=== PATIENT | female | born 1965 | race Caucasian/White ===

== ENCOUNTER → 2016-10-06 | Outpatient (REF) | payer OTHER ==
[2016-10-06 19:27] LABS: ALBUMIN 3.3 GM/DL (3.2-5.2); ALBUMIN/GLOBULIN RATIO 1.03 (1.00-1.93); ALKALINE PHOSPHATASE 64 U/L (45-117); ALT/SGPT 25 U/L (12-78); ANION GAP 6 MEQ/L (8-16); AST/SGOT 21 U/L (15-37); BILIRUBIN,TOTAL 0.6 MG/DL (0.2-1.0); BLOOD UREA NITROGEN 14 MG/DL (7-18); CARBON DIOXIDE LEVEL 28 MEQ/L (21-32); CHLORIDE LEVEL 109 MEQ/L (98-107); CHOLESTEROL LEVEL 160 MG/DL (<200); CREATININE FOR GFR 0.79 MG/DL (0.55-1.02); FERRITIN 38 NG/ML (8-252); GLOMERULAR FILTRATION RATE > 60.0 (>58); GLUCOSE, FASTING 82 MG/DL (70-105); POTASSIUM SERUM 3.9 MEQ/L (3.5-5.1); SODIUM LEVEL 143 MEQ/L (136-145); TOTAL PROTEIN 6.5 GM/DL (6.4-8.2); TRIGLYCERIDES LEVEL 54 MG/DL (<150)
[2016-10-06 19:28] LABS: VITAMIN B12 LEVEL 202 PG/ML
[2016-10-06 19:29] LABS: FOLATE 3.9 NG/ML
[2016-10-06 20:37] LABS: BASO % 0.2 % (0.0-1.0); EOS # 0.1 K/mm3 (0.0-0.50); EOS % 1.8 % (0.0-3.0); LARGE UNSTAINED CELL # 0.1 K/mm3 (0.0-0.4); LARGE UNSTAINED CELL % 1.8 % (0.0-4.0); LYMPH # 0.8 K/mm3 (1.5-4.5); LYMPH % 19.2 % (24.0-44.0); MEAN CORPUSCULAR HEMOGLOBIN 28.1 pg (27.0-33.0); MEAN CORPUSCULAR HGB CONC 32.4 g/dl (32.0-36.5); MEAN CORPUSCULAR VOLUME 86.7 fl (80.0-96.0); MONO # 0.4 K/mm3 (0.0-0.8); MONO % 9.9 % (0.0-5.0); NEUTROPHILS # 2.6 K/mm3 (1.8-7.7); NEUTROPHILS % 67.1 % (36.0-66.0); PLATELET COUNT, AUTOMATED 171 k/mm3 (150-450); RED CELL DISTRIBUTION WIDTH 13.6 % (11.5-14.5); WHITE BLOOD COUNT 3.9 K/mm3 (4.0-10.0)
== END ==
LOC: M SFHCCAPE 06:56
PROVIDERS: ATTEND Physician Assistant
DX: Z98.84 Bariatric surgery status (principal); E55.9 Vitamin D deficiency, unspecified

== ENCOUNTER → 2017-01-05 | Outpatient (REF) | payer OTHER | LOC: M SFHCCAPE 14:47 | PROVIDERS: ATTEND Physician Assistant | DX: M54.42 Lumbago with sciatica, left side (principal) ==

== ENCOUNTER → 2017-04-13 | Outpatient (CLI) | payer BC ==
--- NOTE | 2017-04-13 15:27 | REPMRS ---
Patient History The patient states she has not had a clinical breast exam in over a year. Patient is postmenopausal. Family history of breast cancer in mother at age 50 or over. Took hormonal contraceptives for 4 years. Digital Woman Screen Mammo: April 13, 2017 - Exam #: [id number] Bilateral CC and MLO view(s) were taken. Technologist: Agnieszka Ojeda, Technologist Prior study comparison: February 20, 2016, digital woman screen mammo performed at [facility]. January 04, 2014, bilateral bilat screen digital mammo, performed at [facility] ([facility] FINDINGS: There are scattered fibroglandular densities. There has been no change in the appearance of the mammogram from the prior studies. There is a mild amount of residual fibroglandular tissue which is fairly symmetric. There is no interval development of dominant mass, architectural distortion, or clustered microcalcification suggestive of malignancy. Large coarse benign appearing calcifications are present. Large coarse benign appearing calcifications are present. No significant changes when compared with prior studies. ASSESSMENT: BI-RADS/ACR category 2 mammogram. Benign finding(s). Recommendation Routine screening mammogram in 1 year (for women over age 40). This mammogram was interpreted with the aid of an FDA-approved computer-aided dectection system. A. Negative x-ray reports should not delay biopsy if a dominant or clinically suspicious mass is present. B. Four to eight percent of cancers are not identified by mammography. C. Adenosis and dense breast may obscure an underlying neoplasm. Electronically Signed By: Bobby Goodson MD 04/13/17 [id number]
== END ==
LOC: M WHC 13:22
PROVIDERS: ATTEND Physician Assistant
DX: Z12.31 Encounter for screening mammogram for malignant neoplasm of breast (principal)

== ENCOUNTER → 2018-08-23 | Outpatient (REF) | payer OTHER ==
[2018-08-27 14:13] LABS: HPV HYBRID CAPTURE II Negative (Negative)
== END ==
LOC: M SFHCWAGY 15:19
DX: Z12.4 Encounter for screening for malignant neoplasm of cervix (principal)
CPT/HCPCS: G0123

== ENCOUNTER → 2018-08-23 | Outpatient (CLI) | payer BC | LOC: M WHC 13:14 | DX: Z12.31 Encounter for screening mammogram for malignant neoplasm of breast (principal); Z80.3 Family history of malignant neoplasm of breast; Z92.0 Personal history of contraception | CPT/HCPCS: 77067 ==

== ENCOUNTER → 2019-05-19 | Outpatient (REF) | payer OTHER ==
[2019-05-19 19:50] LABS: ALBUMIN 3.6 GM/DL (3.2-5.2); BILIRUBIN,DIRECT 0.1 MG/DL (0.0-0.2); BILIRUBIN,TOTAL 0.4 MG/DL (0.2-1.0); TOTAL PROTEIN 6.9 GM/DL (6.4-8.2)
== END ==
LOC: M LABDRWCV 18:25
PROVIDERS: ATTEND Podiatrist
DX: Z00.00 Encounter for general adult medical examination without abnormal findings (principal)

== ENCOUNTER → 2019-05-19 | Outpatient (REF) | payer OTHER ==
[2019-05-19 17:02] LABS: BASO % 0.3 % (0.0-1.0); EOS % 0.6 % (0.0-3.0); HEMATOCRIT 38.7 % (36.0-47.0); HEMOGLOBIN 12.5 g/dl (12.0-15.5); LYMPH # 1.1 10^3/uL (1.5-5.0); LYMPH % 16.6 % (24.0-44.0); MEAN CORPUSCULAR HEMOGLOBIN 28.2 pg (27.0-33.0); MEAN CORPUSCULAR HGB CONC 32.3 g/dl (32.0-36.5); MEAN CORPUSCULAR VOLUME 87.2 fl (80.0-96.0); MONO # 0.5 10^3/uL (0.0-0.8); MONO % 7.6 % (0.0-5.0); NEUTROPHILS # 4.8 10^3/uL (1.5-8.5); NEUTROPHILS % 74.7 % (36.0-66.0); PLATELET COUNT, AUTOMATED 214 10^3/uL (150-450); RED BLOOD COUNT 4.44 10^6/uL (4.00-5.40); WHITE BLOOD COUNT 6.5 10^3/uL (4.0-10.0)
[2019-05-19 17:37] LABS: ALBUMIN 4.2 GM/DL (3.2-5.2); ALT/SGPT 16 U/L (12-78); BILIRUBIN,TOTAL 0.5 MG/DL (0.2-1.0); BLOOD UREA NITROGEN 13 MG/DL (7-18); CALCIUM LEVEL 9.5 MG/DL (8.5-10.1); CARBON DIOXIDE LEVEL 29 MEQ/L (21-32); CHLORIDE LEVEL 108 MEQ/L (98-107); CHOLESTEROL LEVEL 166 MG/DL (<200); CHOLESTEROL RISK RATIO 2.515 (<5); CREATININE FOR GFR 0.79 MG/DL (0.55-1.30); GLOMERULAR FILTRATION RATE > 60.0 (>51); GLUCOSE, FASTING 116 MG/DL (70-100); HDL CHOLESTEROL 66 MG/DL (>40); IRON (FE) 52 UG/DL (50-170); LDL CHOLESTEROL 87 MG/DL (<100); NON-HDL-C 100 MG/DL; POTASSIUM SERUM 4.2 MEQ/L (3.5-5.1); SODIUM LEVEL 143 MEQ/L (136-145); TOTAL 25(OH) VITAMIN D 25.8 NG/ML (30.0-100.0); TOTAL PROTEIN 6.8 GM/DL (6.4-8.2); TRIGLYCERIDES LEVEL 66 MG/DL (<150); VITAMIN B12 LEVEL 261 PG/ML (247-911)
== END ==
LOC: M SFHCCAPE 07:17
PROVIDERS: ATTEND Physician Assistant
DX: E55.9 Vitamin D deficiency, unspecified (principal); E53.8 Deficiency of other specified B group vitamins; D50.9 Iron deficiency anemia, unspecified; Z98.84 Bariatric surgery status; E66.9 Obesity, unspecified

== ENCOUNTER → 2019-10-17 | Outpatient (CLI) | payer BC, OTHER ==
--- NOTE | 2019-10-17 15:13 | REPMRS ---
Patient History The patient states she had a clinical breast exam in 2019. Family history of breast cancer at age 50 or over in mother. Took hormonal contraceptives for 4 years. Digital Woman Screen Mammo: October 17, 2019 - Exam #: [id number] Bilateral CC and MLO view(s) were taken. Technologist: Carolynn Garcia, Technologist Prior study comparison: August 23, 2018, bilateral digital woman screen mammo performed at [facility]. April 13, 2017, digital woman screen mammo performed at [facility]. February 20, 2016, digital woman screen mammo performed at [facility]. FINDINGS: There are scattered fibroglandular densities. There has been no change in the appearance of the mammogram from the prior studies. There is a mild amount of scattered fibroglandular density which is fairly symmetric. There is no interval development of dominant mass, architectural distortion, or grouped microcalcification suggestive of malignancy. 3-D tomosynthesis shows no additional findings. Assessment: BI-RADS/ACR category 1 mammogram. Negative Mammogram. Recommendation Routine screening mammogram of both breasts in 1 year (for women over age 40). This patient's Lifetime Breast Cancer Risk is estimated at 18.0 %. This mammogram was interpreted with the aid of an FDA-approved computer-aided dectection system. Electronically Signed By: Taye Oglesby MD 10/17/19 [id number]
== END ==
LOC: M WHC 13:58
PROVIDERS: ATTEND Nurse Practitioner Family
DX: Z12.31 Encounter for screening mammogram for malignant neoplasm of breast (principal); Z80.3 Family history of malignant neoplasm of breast

== ENCOUNTER → 2019-10-25 | Outpatient (CLI) | payer BC, OTHER ==
--- NOTE | 2019-10-28 09:55 | REP ---
Clinical: Venous insufficiency . Technique: Avitia scale and color Doppler evaluation of the bilateral lower extremities using linear high frequency transducer with reflux evaluation . Findings: Ultrasound examination of the right and left lower extremity deep venous structures from the common femoral vein to the popliteal vein demonstrates normal compressibility flow and wave patterns in response to respiration and augmentation. There is no evidence for deep venous thrombosis. Extensive bilateral elements of reflux disease through the deep and superficial systems noted along with bilateral collateral vessels which also demonstrate reflux. Please refer to worksheet for detail findings. Impression: No evidence for deep venous thrombosis. Extensive bilateral reflux disease with bilateral collateral vessels. Electronically Signed by Severo Hernandez MD 10/28/2019 09:46 A
== END ==
LOC: M RAD 11:55
PROVIDERS: ATTEND Physician Assistant
DX: I87.2 Venous insufficiency (chronic) (peripheral) (principal)

== ENCOUNTER → 2019-11-15 | Outpatient (POV) | payer BC, OTHER ==
[~2019-11-15] VITALS: Ht 170.2 cm; Wt 91.8 kg
[2019-11-15 14:40] VITALS: BP 137/82
--- NOTE | 2019-11-18 09:31 | IRCOV ---
[facility] IR Consult Office Visit IR Consult Office Visit DATE: Nov 15, 2019 REASON FOR CONSULTATION/CHIEF COMPLAINT: Nonhealing right lower extremity ulcer. HISTORY OF PRESENT ILLNESS: 54-year-old female with chronic right medial malleolar venous stasis ulcer presents for varicose vein consultation. She reports right leg vein surgery performed 10 years ago when the veins were stripped. This was performed for bleeding varicose veins. This helped for severa l years but then symptoms returned with pain, limb swelling and nonhealing ulcer. She is on her feet all day and works greater than 8 hours a day. She does wear compression stockings. No prior deep vein thrombosis. No intermittent claudication, rest pain or gangrene. ALLERGIES: Please see below. HOME MEDICATIONS: Please see below. PAST MEDICAL HISTORY: Anxiety Disequilibrium PAST SURGICAL HISTORY: Tubal ligation Umbilical hernia D&C Gastric bypass Endometrial ablation Bariatric surgery Right shoulder tear FAMILY HISTORY: Varicose veins on father's side of the family SOCIAL HISTORY: Nonsmoker. No alcohol or drugs. REVIEW OF SYSTEMS: Otherwise negative PHYSICAL EXAMINATION: VITAL SIGNS: Please see below. GENERAL APPEARANCE: Appears well. Comfortable at rest. HEENT: No scleral icterus. RESPIRATORY: Normal breathing at rest. CARDIOVASCULAR: Normal rate. ABDOMEN: Soft nontender EXTREMITIES: Right lower; mild edema. Varicose eczema. Warm to touch. No hemosiderin deposition or lipodermatosclerosis. Superficial ulceration over the medial malleolus. Left lower extremity: Mild edema. Varicose eczema. Warm to touch. No hemosiderin deposition. No lipodermatosclerosis. No ulcers. NEUROLOGICAL: Alert and oriented. PSYCHIATRIC: Appropriate to circumstance. LABORATORY DATA: None recent. Imaging: I personally reviewed the ultrasound of the bilateral lower extremities from Oct 2019. There is bilateral dilated greater saphenous system with greater than 0.5 seconds reflux. There is also left lesser saphenous vein reflux greater than 0.5 seconds associated with varicosities. ASSESSMENT/PLAN: 54-year-old female with bilateral chronic venous hypertension associated with abnormal reflux in the superficial venous system and nonhealing wound on the right lower extremity. She is a good candidate for EVLT therapy. We have scheduled the patient for right lower extremity, right anterior accessory ablation followed by the left lower extremity greater and lesser saphenous system, at a later date. I spent 30 minutes in consultation with the patient. Thank you for this referral. CC Marily Solorzano Allergies Coded Allergies: MS - Penicillins (Unverified Allergy, Severe, GLANDS SWOLLEN, 12/13/12) MS - Penicillins Cross Reactors (Unverified Allergy, Severe, GLANDS SWOLLEN, 12/13/12) VS, I&O, 24H, Fishbone Vital Signs/I&O Vital Signs Date Time Temp Pulse Resp B/P (MAP) Pulse Ox O2 Delivery O2 Flow Rate FiO2 11/15/19 14:40 97.6 70 18 137/82 (100) 100 Room Air LEONOR LEE MD Nov 18, 2019 09:32
== END ==
LOC: M IRPOV 14:29
PROVIDERS: ATTEND Radiology Diagnostic Radiology
DX: I87.311 Chronic venous hypertension (idiopathic) with ulcer of right lower extremity (principal); I87.393 Chronic venous hypertension (idiopathic) with other complications of bilateral lower extremity; I83.892 Varicose veins of left lower extremity with other complications; L97.319 Non-pressure chronic ulcer of right ankle with unspecified severity; Z98.51 Tubal ligation status; Z98.84 Bariatric surgery status

== ENCOUNTER → 2020-01-19 | Outpatient (CLI) | payer BC, OTHER ==
[~2020-01-19] MED LIST: LIDOCAINE 1% MDV 20ML VIAL As Ordered ONE; LIDOCAINE 2% MDV 20ML VIAL As Ordered ONE
[2020-01-19 15:47] VITALS: BP 126/74
--- NOTE | 2020-01-30 11:49 | REP ---
Ultrasound right lower extremity venous Indication: EVLT treatment Findings: Avitia-scale and color Doppler images obtained of the right lower extremity demonstrate patent and compressible right common femoral vein. Dilated right greater saphenous vein and right anterior accessory greater saphenous vein with reflux greater than 0.5 seconds. The right anterior accessory GSV remains dilated all the way down the thigh and becomes superficial and tortuous around the knee. The site in the distal thigh was prepped and draped in the usual sterile fashion. Moderate sedation was administered for 30 minutes, with the aid of an independent trained observer who monitored the patient's physiologic status. Lidocaine was administered at the anticipated puncture site. Under ultrasound guidance, a micropuncture needle was advanced into the distal right anterior accessory GAV. After several attempts, the anterior accessory vein became spasmodic and was inaccessible. Impression: Right lower extremity ultrasound with color Doppler images demonstrate dilated right greater saphenous vein and right anterior accessory GSV with greater than 0.5 seconds reflux. Right anterior accessory GSV continues down the thigh, dilated and tortuous around the knee. 2. Failed access of the right anterior accessory vein for laser treatment. The patient will be brought back for repeat attempt. Thank you this referral Electronically Signed by Farnaz Wilkins MD 01/30/2020 11:47 A
== END ==
LOC: M IRPRO 11:40
PROVIDERS: ATTEND Radiology Diagnostic Radiology
DX: I83.891 Varicose veins of right lower extremity with other complications (principal)
CPT/HCPCS: 93971; 99152; 99153; C1894

== ENCOUNTER → 2020-02-09 | Outpatient (CLI) | payer BC, OTHER ==
[~2020-02-09] MED LIST changes: +MIDAZOLAM INJ 2MG/2ML VIAL (J2250 PER 1MG) As Ordered ONE; +PROMETHAZINE INJ 25 MG/ML VIAL (J2550) As Ordered ONE; +diphenhydrAMINE 50MG/ML VIAL (J1200) As Ordered ONE; +fentaNYL 100 MCG/2 ML INJECTION (J3010) As Ordered ONE
--- NOTE | 2020-02-09 13:53 | IRHP ---
[facility] IR Pre-Procedure H & P General Date of Service: February 09, 2020 Procedure: Same Day Surgery Interval History and Physical I have seen the patient and reviewed last H & P performed within 30 days. There is no significant interval change. History of Present Illness Chief Complaint The patient is a 54-year-old female admitted with a reason for visit of Varicose Veins. PRE-PROCEDURE DIAGNOSIS:varicose veins HEART: normal rate. LUNGS: normal breathing at rest. ASA Classification ASA Classification: II-Mild systemic disease Mallampati Score: II NPO: Yes Problems with prior sedation: No Obstructive Sleep Apnea: No Plan moderate sedation Allergies Coded Allergies: MS - Penicillins (Unverified Allergy, Severe, GLANDS SWOLLEN, 12/13/12) MS - Penicillins Cross Reactors (Unverified Allergy, Severe, GLANDS SWOLLEN, 12/13/12) VS, I&O, 24H, Fishbone Vital Signs/I&O Vital Signs Date Time Temp Pulse Resp B/P (MAP) Pulse Ox O2 Delivery O2 Flow Rate FiO2 02/09/20 13:40 57 16 99 Nasal Cannula 2 02/09/20 11:22 98.1 LEONOR LEE MD February 09, 2020 13:52
--- NOTE | 2020-02-09 13:54 | POST-OPPD ---
Postoperative Procedure Note Date Of Procedure: February 09, 2020 Time Of Procedure: 13:53 PREOPERATIVE DIAGNOSIS: left leg venous insufficiency. ant gsv reflux POSTOPERATIVE DIAGNOSIS: same FINDINGS: left ant GSV reflux PROCEDURE: EVLT SURGEON:nathalia ANESTHESIA: mod sed ESTIMATED BLOOD LOSS: < 5 ml COMPLICATIONS: none POSTOPERATIVE CONDITION: stable LEONOR LEE MD February 09, 2020 13:54
[2020-02-09 15:45] VITALS: BP 129/72
--- NOTE | 2020-02-10 14:54 | REP ---
LOWER EXTREMITY VENOUS ULTRASOUND: HISTORY: Greater saphenous vein reflux. Sonographic guidance. FINDINGS: Ultrasound guidance is provided to Dr. Wilkins who performed endovascular laser ablation therapy. Electronically Signed by Gopal Oglesby MD 02/10/2020 03:10 P
--- NOTE | 2020-02-13 16:18 | POST-OPPD ---
Postoperative Procedure Note Date Of Procedure: Mar 11, 2020 Time Of Procedure: 15:00 The radiology dictation could not be amended in . Therefore, please use this full procedure report for details of op, coding and billing. Disregard report under imaging tab. IR Endovenous laser treatment for right leg varicose vein. IR Ultrasound of the right leg. IR Tumescent anesthesia under ultrasound guidance. IR Moderate sedation. Clinical information: Right leg varicose veins, venous insufficiency and reflux right anterior accessory GSV. Physician: Dr. Wilkins. Procedure: The patient was advised of the benefits, risks and alternatives of the procedure and informed consent was obtained. The time-out was performed with verification of the patient's name, MRN, site of procedure and type of procedure to be performed. The patient was positioned in the supine position on the table. The site was prepped and draped in the usual sterile fashion. Moderate sedation was performed by the physician including the presence of an independent trained observer who assisted in monitoring the patient's level of consciousness and physiologic status. Following the administration of fentanyl and Versed , the physician spent 60 minutes of continuous face to face time with the patient. Ultrasound of the right lower extremity demonstrates dilated anterior accessory GSV with >0.5 seconds reflux. The access site was identified with ultrasound and anesthetized with lidocaine. The anterior accessory GSV was accessed under ultrasound guidance mid thigh, using a micro introducer needle. An 018 cope wire was advanced into the vein. Incision at the access site was made using a scalpel. The needle was removed and a micro sheath was advanced over the wire under ultrasound guidance. The wire was exchanged for a longer wire, which was advanced under ultrasound guidance. The micro sheath was removed over the wire and an access catheter was advanced over the wire, under ultrasound guidance and positioned 2.5 centimeters from the saphenofemoral junction. The laser fiber was advanced through the catheter under ultrasound guidance and positioned with the tip located >2.5 cm from the saphenous femoral junction. Tumescent anesthesia was then injected under ultrasound guidance along the entire length of the vein to be treated. Repeat ultrasound of the saphenofemoral junction was used to confirm positioning of the tip of the laser back >2.5 cm from junction. The patient was positioned in Trendelenburg. The laser was then activated and under ultrasound guidance used to laser the anterior accessory greater saphenous vein back to the access point. Simultaneous manual compression was applied to the treated vein. Treatment: Wattage: 7 Time: 77 seconds Pullback rate 1 cm every 7 seconds Total Energy deposited 538 joules Treatment 50 joules per centimeter of vein. The fiber and catheter were removed, pressure held and hemostasis achieved. A sterile dressing was applied to the site. Compression dressing was then applied to the leg, from ankle to groin. The patient tolerated the procedure well and was returned to the PRU in stable condition. EBL: < 5 ml. Complications: None. Impression: 1. Ultrasound demonstrates incompetent right anterior GSV with > 0.5 seconds reflux. 2. Successful right anterior accessory greater saphenous vein ablation with laser. 3. Compression dressing applied from ankle to groin. Patient to return in 1 week for follow up ultrasound at which time the compression dressing will be switched to stockings. Thank you this referral. cc LEONOR Topete MD Feb 13, 2020 16:18
== END ==
LOC: M IRPRO 11:18
PROVIDERS: ATTEND Radiology Diagnostic Radiology
DX: I83.891 Varicose veins of right lower extremity with other complications (principal); I87.2 Venous insufficiency (chronic) (peripheral)
CPT/HCPCS: 36478; 76940; 99152; 99153; C1894; J1200; J1644; J2250; J3010

== ENCOUNTER → 2020-02-16 | Outpatient (CLI) | payer BC, OTHER ==
--- NOTE | 2020-02-17 03:54 | REP ---
Clinical: Status post EVLT with right-sided pain. Technique: Avitia scale and color Doppler evaluation right lower extremity using linear high frequency transducer. Findings: Ultrasound examination of the right lower extremity deep venous structures from the common femoral vein to the popliteal vein demonstrates normal compressibility flow and wave patterns in response to respiration and augmentation. There is no evidence for deep venous thrombosis. Impression: No evidence for deep venous thrombosis. Electronically Signed by Severo Hernandez MD 02/17/2020 03:46 A
== END ==
LOC: M RAD 10:03
PROVIDERS: ATTEND Radiology Diagnostic Radiology
DX: M79.661 Pain in right lower leg (principal); Z98.890 Other specified postprocedural states

== ENCOUNTER → 2020-03-08 | Outpatient (CLI) | payer BC, OTHER ==
--- NOTE | 2020-03-08 12:33 | IRHP ---
[facility] IR Pre-Procedure H & P General Date of Service: Mar 08, 2020 Procedure: Same Day Surgery Interval History and Physical I have seen the patient and reviewed last H & P performed within 30 days. There is no significant interval change. History of Present Illness Chief Complaint The patient is a 54-year-old female admitted with a reason for visit of Varicose Veins. PRE-PROCEDURE DIAGNOSIS: varicose veins HEART:normal rate LUNGS: normal breathing at rest. ASA Classification ASA Classification: II-Mild systemic disease Mallampati Score: II NPO: Yes Problems with prior sedation: No Obstructive Sleep Apnea: No Plan moderate sedation Allergies Coded Allergies: MS - Penicillins (Unverified Allergy, Severe, GLANDS SWOLLEN, 12/13/12) MS - Penicillins Cross Reactors (Unverified Allergy, Severe, GLANDS SWOLLEN, 12/13/12) Home Medications No Active Prescriptions or Reported Meds VS, I&O, 24H, Fishbone Vital Signs/I&O Vital Signs Date Time Temp Pulse Resp B/P (MAP) Pulse Ox O2 Delivery O2 Flow Rate FiO2 03/08/20 12:20 65 16 99 Nasal Cannula 2 03/08/20 11:30 98.2 LEONOR LEE MD Mar 08, 2020 12:33
--- NOTE | 2020-03-08 13:29 | POST-OPPD ---
Postoperative Procedure Note Date Of Procedure: Mar 08, 2020 Time Of Procedure: 13:28 PREOPERATIVE DIAGNOSIS: left leg varicose veins POSTOPERATIVE DIAGNOSIS: same FINDINGS: incompetent left anterior accessory GSV PROCEDURE: left anterior accessory GSV EVLT SURGEON: nathalia ANESTHESIA: mod sed ESTIMATED BLOOD LOSS: < 5 ml COMPLICATIONS: none POSTOPERATIVE CONDITION: stable LEONOR LEE MD Mar 08, 2020 13:29
[2020-03-08 15:13] VITALS: BP 135/74
--- NOTE | 2020-03-12 12:19 | REP ---
IR Endovenous laser treatment for left leg varicose vein. IR Ultrasound of the left leg. IR Tumescent anesthesia under ultrasound guidance. IR moderate sedation. Clinical information: Varicose veins. Incompetent left anterior accessory greater saphenous vein with greater than 0.5-second reflux. Physician: Dr. Wilkins. Procedure: The patient was advised of the benefits, risks and alternatives of the procedure and informed consent was obtained. The time-out was performed with verification of the patient's name, MRN, site of procedure and type of procedure to be performed. The patient was positioned in the supine position on the table. The site was prepped and draped in the usual sterile fashion. Moderate sedation was performed by the physician including the presence of an independent trained observer who assisted in monitoring the patient's level of consciousness and physiologic status. Following the administration of fentanyl and Versed , the physician spent 60 minutes of continuous face to face time with the patient. Ultrasound of the left leg demonstrates dilated anterior accessory GSV with greater than 0.5 seconds reflux. The access site was identified with ultrasound and anesthetized with lidocaine. The anterior accessory GSV was accessed under ultrasound guidance distal thigh, using a micro introducer needle. An 018 cope wire was advanced into the vein. Incision at the access site was made using a scalpel. The needle was removed and a micro sheath was advanced over the wire under ultrasound guidance. The wire was exchanged for a longer wire. The micro sheath was removed over the wire and an access catheter was advanced over the wire, under ultrasound guidance and positioned 2.5 centimeters from the saphenofemoral junction. The laser fiber was advanced through the catheter under ultrasound guidance and positioned with the tip located > 2.5 cm from the saphenous femoral junction. Tumescent anesthesia was then injected under ultrasound guidance along the entire length of the vein to be treated. Repeat ultrasound of the saphenofemoral junction was used to confirm positioning of the tip of the laser back > 2.5 cm from junction. The patient was positioned in Trendelenburg. The laser was then activated and under ultrasound guidance used to laser the anterior accessory greater saphenous vein back to the access point. Simultaneous manual compression was applied to the treated vein. Treatment: Wattage: 7 Time: 77 seconds Pullback rate 1 cm every 7 seconds Total Energy deposited 537 joules Treatment 53 joules per centimeter of vein. The fiber, catheter and sheath were removed, pressure held and hemostasis achieved. A sterile dressing was applied to the site. Compression dressing was then applied to the leg, from ankle to groin. The patient tolerated the procedure well and was returned to the PRU in stable condition. EBL: < 5 ml. Complications: None. Impression: 1. Ultrasound demonstrates dilated and incompetent left anterior accessory greater saphenous vein with greater than 0.5-second reflux. 2. Successful left anterior accessory greater saphenous vein ablation with laser. 3. Compression dressing applied from ankle to groin. Patient to return in 1 week for follow up ultrasound at which time the compression dressing will be switched to stockings. 4. Patient to return for left lesser saphenous vein ablation. Thank you this referral. Electronically Signed by Farnaz Wilkins MD 03/12/2020 12:18 P
== END ==
LOC: M IRPRO 11:13
PROVIDERS: ATTEND Radiology Diagnostic Radiology
DX: I83.892 Varicose veins of left lower extremity with other complications (principal); I87.2 Venous insufficiency (chronic) (peripheral); Z88.0 Allergy status to penicillin
CPT/HCPCS: 36478; 76940; 99152; 99153; J2250; J3010

== ENCOUNTER → 2020-03-15 | Outpatient (CLI) | payer BC, OTHER ==
--- NOTE | 2020-03-15 11:15 | REP ---
Clinical: Left lower extremity pain. Status post venous laser therapy . Technique: Avitia scale and color Doppler evaluation using linear high frequency transducer. Findings: Ultrasound examination of the left lower extremity deep venous structures from the common femoral vein to the popliteal vein demonstrates normal compressibility flow and wave patterns in response to respiration and augmentation. There is no evidence for deep venous thrombosis. Anterior accessory saphenous vein demonstrates thrombus secondary to EVLT. Greater saphenous vein is normal. Impression: No evidence for deep venous thrombosis. Electronically Signed by Severo Hernandez MD 03/15/2020 11:06 A
== END ==
LOC: M RAD 10:26
PROVIDERS: ATTEND Radiology Diagnostic Radiology
DX: Z98.890 Other specified postprocedural states (principal); I80.02 Phlebitis and thrombophlebitis of superficial vessels of left lower extremity

== ENCOUNTER → 2020-05-07 | Outpatient (CLI) | payer BC, OTHER ==
--- NOTE | 2020-06-07 11:08 | REP ---
BILATERAL BREAST MRI STUDY WITHOUT AND WITH INTRAVENOUS (IV) GADOLINIUM HISTORY: High risk breast cancer screening study. COMPARISON: Mammography 10/17/2019. No comparison MRI study. GADOLINIUM ENHANCEMENT DOSE: 18 mL of intravenous ProHance. MRI FINDINGS: There is a mild pattern of symmetric fibroglandular tissue. There is no evidence of axillary lymphadenopathy or significant breast cystic change. High resolution pre- and postcontrast T1 and T2-weighted scans show no suspicious morphologic abnormality in either breast. Dynamically acquired sequential postcontrast images show no suspicious focus of enhancement and/or washout in either breast to suggest malignancy. Subtraction images show no additional abnormality. There is a mild pattern of background parenchymal enhancement. IMPRESSION: BI-RADS Category 1 negative findings. Patients whose estimated breast cancer lifetime risk assessment is greater than 20% merit annual screening, breast MRI scanning in addition to annual screening mammography. MTDD
== END ==
LOC: M RAD 12:41
PROVIDERS: ATTEND Nurse Practitioner Family
DX: Z91.89 Other specified personal risk factors, not elsewhere classified (principal)

== ENCOUNTER → 2021-12-12 | Outpatient (REF) | payer OTHER ==
[2021-12-12 16:24] LABS: BASO % 0.7 % (0.0-1.0); EOS # 0.1 10^3/uL (0.0-0.5); EOS % 2.4 % (0.0-3.0); HEMATOCRIT 36.2 % (36.0-47.0); HEMOGLOBIN 11.7 g/dl (12.0-15.5); LYMPH # 1.7 10^3/uL (1.5-5.0); LYMPH % 36.3 % (24.0-44.0); MEAN CORPUSCULAR HEMOGLOBIN 26.7 pg (27.0-33.0); MEAN CORPUSCULAR HGB CONC 32.3 g/dl (32.0-36.5); MEAN CORPUSCULAR VOLUME 82.5 fl (80.0-96.0); MONO # 0.5 10^3/uL (0.0-0.8); MONO % 10.3 % (2.0-8.0); NEUTROPHILS # 2.3 10^3/uL (1.5-8.5); NEUTROPHILS % 49.9 % (36.0-66.0); PLATELET COUNT, AUTOMATED 204 10^3/uL (150-450); RED BLOOD COUNT 4.39 10^6/uL (4.00-5.40); WHITE BLOOD COUNT 4.6 10^3/uL (4.0-10.0)
[2021-12-12 16:32] LABS: ALBUMIN 3.5 GM/DL (3.2-5.2); ALT/SGPT 33 U/L (12-78); BILIRUBIN,TOTAL 0.4 MG/DL (0.2-1.0); BLOOD UREA NITROGEN 14 MG/DL (7-18); CALCIUM LEVEL 8.9 MG/DL (8.5-10.1); CARBON DIOXIDE LEVEL 31 MEQ/L (21-32); CHLORIDE LEVEL 110 MEQ/L (98-107); CHOLESTEROL LEVEL 177 MG/DL (<200); CHOLESTEROL RISK RATIO 3.105 (<5); CREATININE FOR GFR 0.83 MG/DL (0.55-1.30); FERRITIN 6 NG/ML (8-252); FREE T4 0.93 NG/DL (0.76-1.46); GLOMERULAR FILTRATION RATE > 60.0 (>51); GLUCOSE, FASTING 78 MG/DL (70-100); HDL CHOLESTEROL 57 MG/DL (>40); IRON (FE) 54 UG/DL (50-170); LDL CHOLESTEROL 105 MG/DL (<100); NON-HDL-C 120 MG/DL; PERCENT SATURATION 16.2 % (13.2-45.0); POTASSIUM SERUM 4.3 MEQ/L (3.5-5.1); SODIUM LEVEL 144 MEQ/L (136-145); TOTAL IRON BINDING CAPACITY 333 UG/DL (250-450); TOTAL PROTEIN 6.8 GM/DL (6.4-8.2); TRIGLYCERIDES LEVEL 73 MG/DL (<150)
[2021-12-12 17:09] LABS: TOTAL 25(OH) VITAMIN D 21.4 NG/ML (30.0-100.0)
[2021-12-12 17:10] LABS: VITAMIN B12 LEVEL 172 PG/ML
[2021-12-12 17:11] LABS: FOLATE 13.2 NG/ML
[2021-12-12 17:58] LABS: HEMOGLOBIN A1c 5.4 %
== END ==
LOC: M SFHCCAPE 07:29
PROVIDERS: ATTEND Physician Assistant
DX: Z00.00 Encounter for general adult medical examination without abnormal findings (principal)

== ENCOUNTER → 2022-03-18 | Outpatient (REF) | payer OTHER ==
[2022-03-18 16:50] LABS: BASO % 0.7 % (0.0-1.0); EOS # 0.1 10^3/uL (0.0-0.5); EOS % 2.7 % (0.0-3.0); HEMATOCRIT 35.3 % (36.0-47.0); LYMPH # 1.5 10^3/uL (1.5-5.0); LYMPH % 38.1 % (24.0-44.0); MEAN CORPUSCULAR HEMOGLOBIN 25.9 pg (27.0-33.0); MEAN CORPUSCULAR HGB CONC 31.2 g/dl (32.0-36.5); MEAN CORPUSCULAR VOLUME 83.1 fl (80.0-96.0); MONO # 0.4 10^3/uL (0.0-0.8); NEUTROPHILS # 1.9 10^3/uL (1.5-8.5); NEUTROPHILS % 48.3 % (36.0-66.0); PLATELET COUNT, AUTOMATED 204 10^3/uL (150-450); RED BLOOD COUNT 4.25 10^6/uL (4.00-5.40)
[2022-03-18 17:00] LABS: ALBUMIN 3.4 GM/DL (3.2-5.2); ALT/SGPT 20 U/L (12-78); BILIRUBIN,TOTAL 0.3 MG/DL (0.2-1.0); BLOOD UREA NITROGEN 10 MG/DL (7-18); CALCIUM LEVEL 8.9 MG/DL (8.5-10.1); CARBON DIOXIDE LEVEL 26 MEQ/L (21-32); CHLORIDE LEVEL 111 MEQ/L (98-107); CHOLESTEROL LEVEL 143 MG/DL (<200); CHOLESTEROL RISK RATIO 2.803 (<5); CREATININE FOR GFR 0.85 MG/DL (0.55-1.30); FERRITIN 5 NG/ML (8-252); GLOMERULAR FILTRATION RATE > 60.0 (>51); GLUCOSE, FASTING 79 MG/DL (70-100); HDL CHOLESTEROL 51 MG/DL (>40); IRON (FE) 27 UG/DL (50-170); LDL CHOLESTEROL 73 MG/DL (<100); NON-HDL-C 92 MG/DL; PERCENT SATURATION 8.2 % (13.2-45.0); POTASSIUM SERUM 4.3 MEQ/L (3.5-5.1); SODIUM LEVEL 143 MEQ/L (136-145); TOTAL IRON BINDING CAPACITY 330 UG/DL (250-450); TOTAL PROTEIN 6.7 GM/DL (6.4-8.2); TRIGLYCERIDES LEVEL 97 MG/DL (<150)
[2022-03-18 17:39] LABS: TOTAL 25(OH) VITAMIN D 38.6 NG/ML (30.0-100.0); VITAMIN B12 LEVEL 503 PG/ML
[2022-03-18 17:41] LABS: FOLATE 9.2 NG/ML
== END ==
LOC: M SFHCCAPE 07:52
PROVIDERS: ATTEND Physician Assistant
DX: E53.8 Deficiency of other specified B group vitamins (principal); E55.9 Vitamin D deficiency, unspecified; R79.0 Abnormal level of blood mineral

== ENCOUNTER → 2022-04-18 | Outpatient (CLI) | payer OTHER ==
[~2022-04-18] MED LIST changes: +E-Z-GAS II EFFERVESCENT PACKET (SODIUM BICARB./CITRIC ACID/SIMETHICONE) As Ordered ONE; +E-Z-HD 98% w/w 340GM SUSP BTL As Ordered ONE; +E-Z-PAQUE 96% w/w SUSP 176GM BTL As Ordered ONE; -LIDOCAINE 1% MDV 20ML VIAL As Ordered ONE; -LIDOCAINE 2% MDV 20ML VIAL As Ordered ONE; -MIDAZOLAM INJ 2MG/2ML VIAL (J2250 PER 1MG) As Ordered ONE; -PROMETHAZINE INJ 25 MG/ML VIAL (J2550) As Ordered ONE; -diphenhydrAMINE 50MG/ML VIAL (J1200) As Ordered ONE; -fentaNYL 100 MCG/2 ML INJECTION (J3010) As Ordered ONE
== END ==
LOC: M RAD 08:04
PROVIDERS: ATTEND Surgery
DX: Z98.84 Bariatric surgery status (principal); K21.9 Gastro-esophageal reflux disease without esophagitis

== ENCOUNTER → 2022-05-02 | Outpatient (REF) | payer OTHER | LOC: M PLALAB 14:35 | PROVIDERS: ATTEND Nurse Practitioner Family | DX: Z12.4 Encounter for screening for malignant neoplasm of cervix (principal) ==

== ENCOUNTER → 2022-11-24 | Outpatient (REF) | payer OTHER ==
[2022-11-24 18:17] LABS: BASO % 0.6 % (0.0-1.0); EOS # 0.1 10^3/uL (0.0-0.5); EOS % 1.6 % (0.0-3.0); HEMATOCRIT 37.4 % (36.0-47.0); HEMOGLOBIN 11.9 g/dl (12.0-15.5); LYMPH # 1.5 10^3/uL (1.5-5.0); LYMPH % 31.1 % (24.0-44.0); MEAN CORPUSCULAR HEMOGLOBIN 27.2 pg (27.0-33.0); MEAN CORPUSCULAR HGB CONC 31.8 g/dl (32.0-36.5); MEAN CORPUSCULAR VOLUME 85.4 fl (80.0-96.0); MONO # 0.5 10^3/uL (0.0-0.8); MONO % 9.4 % (2.0-8.0); NEUTROPHILS # 2.8 10^3/uL (1.5-8.5); NEUTROPHILS % 57.1 % (36.0-66.0); PLATELET COUNT, AUTOMATED 210 10^3/uL (150-450); RED BLOOD COUNT 4.38 10^6/uL (4.00-5.40); WHITE BLOOD COUNT 4.9 10^3/uL (4.0-10.0)
[2022-11-24 18:23] LABS: IRON (FE) 61 UG/DL (50-170); PERCENT SATURATION 19.4 % (13.2-45.0); TOTAL IRON BINDING CAPACITY 315 UG/DL (250-425)
[2022-11-24 18:24] LABS: APPEARANCE, URINE CLEAR (CLEAR); BACTERIA, URINE AUTO NEGATIVE (NEGATIVE); BILIRUBIN, URINE AUTO NEGATIVE (NEGATIVE); BLOOD, URINE BLOOD 1+ (NEGATIVE); COLOR, URINE YELLOW (YELLOW); GLUCOSE, URINE (UA) AUTO NEGATIVE (NEGATIVE); KETONE, URINE AUTO NEGATIVE (NEGATIVE); LEUKOCYTE ESTERASE, URINE AUTO TRACE (NEGATIVE); NITRITE, URINE AUTO NEGATIVE (NEGATIVE); PROTEIN, URINE AUTO NEGATIVE (NEGATIVE); RBC, URINE AUTO 1 /HPF (0-3); SPECIFIC GRAVITY URINE AUTO 1.008 (1.002-1.035); SQUAMOUS EPITHELIAL CELL UR AU 4 /HPF (0-6); UROBILINOGEN, URINE AUTO 0.2 mg/dL (0.0-2.0); WBC, URINE AUTO 0 /HPF (0-3)
[2022-11-24 18:27] LABS: ALBUMIN 3.6 G/DL (3.2-5.2); ALKALINE PHOSPHATASE 71 U/L (46-116); ALT/SGPT 15 U/L (7.0-40); AST/SGOT 26 U/L (<34); BILIRUBIN,TOTAL 0.6 MG/DL (0.3-1.2); BLOOD UREA NITROGEN 15 MG/DL (9-23); CALCIUM LEVEL 8.9 MG/DL (8.5-10.1); CARBON DIOXIDE LEVEL 28 MMOL/L (20-31); CHLORIDE LEVEL 107 MMOL/L (98-107); CREATININE FOR GFR 0.79 MG/DL (0.55-1.30); FERRITIN 3.9 NG/ML (7.3-270.7); GLOMERULAR FILTRATION RATE > 60.0 (>51); GLUCOSE, FASTING 77 MG/DL (60-100); POTASSIUM SERUM 4.8 MMOL/L (3.5-5.1); SODIUM LEVEL 140 MMOL/L (136-145); TOTAL 25(OH) VITAMIN D 38.8 NG/ML (20.0-100.0); TOTAL PROTEIN 6.4 G/DL (5.7-8.2); VITAMIN B12 LEVEL 239 PG/ML (211-911)
[2022-11-24 18:28] LABS: FOLATE 7.7 NG/ML (>5.4)
[2022-11-24 18:52] LABS: HEMOGLOBIN A1c 5.3 % (4.0-6.0)
== END ==
LOC: M SFHCCAPE 10:14
PROVIDERS: ATTEND Physician Assistant
DX: M25.50 Pain in unspecified joint (principal); Z98.84 Bariatric surgery status; E55.9 Vitamin D deficiency, unspecified; E53.8 Deficiency of other specified B group vitamins; R73.01 Impaired fasting glucose; D50.9 Iron deficiency anemia, unspecified; R53.83 Other fatigue

== ENCOUNTER → 2023-03-03 | Outpatient (REF) | payer OTHER ==
[2023-03-03 18:26] LABS: C REACTIVE PROTEIN QUANTITATIV < 0.40 MG/DL (<1.0)
[2023-03-03 18:30] LABS: RHEUMATOID FACTOR QUANT < 3.5 IU/ML (<14)
[2023-03-03 18:48] LABS: VITAMIN B12 LEVEL 458 PG/ML (211-911)
== END ==
LOC: M SFHCCAPE 07:52
PROVIDERS: ATTEND Physician Assistant
DX: E53.8 Deficiency of other specified B group vitamins (principal); M25.50 Pain in unspecified joint

== ENCOUNTER → 2023-05-07 | Outpatient (CLI) | payer OTHER | LOC: M WHC 13:50 | PROVIDERS: ATTEND Physician Assistant | DX: Z12.31 Encounter for screening mammogram for malignant neoplasm of breast (principal); Z80.3 Family history of malignant neoplasm of breast ==

== ENCOUNTER → 2023-08-31 | Outpatient (REF) | payer OTHER ==
[2023-08-31 19:38] LABS: BASO % 0.5 % (0.0-1.0); EOS # 0.1 10^3/uL (0.0-0.5); EOS % 1.6 % (0.0-3.0); HEMATOCRIT 37.5 % (36.0-47.0); HEMOGLOBIN 12.1 g/dl (12.0-15.5); LYMPH # 1.5 10^3/uL (1.5-5.0); LYMPH % 27.4 % (24.0-44.0); MEAN CORPUSCULAR HEMOGLOBIN 27.6 pg (27.0-33.0); MEAN CORPUSCULAR HGB CONC 32.3 g/dl (32.0-36.5); MEAN CORPUSCULAR VOLUME 85.4 fl (80.0-96.0); MONO # 0.5 10^3/uL (0.0-0.8); MONO % 8.7 % (2.0-8.0); NEUTROPHILS # 3.4 10^3/uL (1.5-8.5); NEUTROPHILS % 61.6 % (36.0-66.0); PLATELET COUNT, AUTOMATED 243 10^3/uL (150-450); RED BLOOD COUNT 4.39 10^6/uL (4.00-5.40); WHITE BLOOD COUNT 5.5 10^3/uL (4.0-10.0)
[2023-08-31 20:04] LABS: FERRITIN 5.4 NG/ML (7.3-270.7)
[2023-08-31 20:05] LABS: ALBUMIN 3.6 G/DL (3.2-5.2); ALKALINE PHOSPHATASE 73 U/L (46-116); ALT/SGPT 16 U/L (7.0-40); AST/SGOT 17 U/L (<34); BILIRUBIN,TOTAL 0.5 MG/DL (0.3-1.2); BLOOD UREA NITROGEN 14 MG/DL (9-23); CALCIUM LEVEL 9.5 MG/DL (8.5-10.1); CARBON DIOXIDE LEVEL 27 MMOL/L (20-31); CHLORIDE LEVEL 107 MMOL/L (98-107); CREATININE FOR GFR 0.77 MG/DL (0.55-1.30); GLOMERULAR FILTRATION RATE > 60.0 (>51); GLUCOSE, FASTING 79 MG/DL (60-100); POTASSIUM SERUM 4.8 MMOL/L (3.5-5.1); SODIUM LEVEL 139 MMOL/L (136-145); TOTAL IRON BINDING CAPACITY 301 UG/DL (250-425); TOTAL PROTEIN 6.6 G/DL (5.7-8.2)
[2023-08-31 20:06] LABS: IRON (FE) 94 UG/DL (50-170); PERCENT SATURATION 31.2 % (13.2-45.0); VITAMIN B12 LEVEL 520 PG/ML (211-911)
[2023-08-31 20:07] LABS: FOLATE 10.7 NG/ML (>5.4)
== END ==
LOC: M SFHCCAPE 09:35
PROVIDERS: ATTEND Physician Assistant Medical
DX: Z98.84 Bariatric surgery status (principal); D50.9 Iron deficiency anemia, unspecified; F33.1 Major depressive disorder, recurrent, moderate

== ENCOUNTER → 2024-09-12 | Outpatient (REF) | payer OTHER ==
[2024-09-12 18:21] LABS: BASO % 0.6 % (0.0-1.0); EOS # 0.1 10^3/uL (0.0-0.5); EOS % 2.2 % (0.0-3.0); HEMATOCRIT 37.3 % (36.0-47.0); LYMPH # 1.6 10^3/uL (1.5-5.0); LYMPH % 32.2 % (24.0-44.0); MEAN CORPUSCULAR HEMOGLOBIN 27.6 pg (27.0-33.0); MEAN CORPUSCULAR HGB CONC 32.2 g/dl (32.0-36.5); MEAN CORPUSCULAR VOLUME 85.7 fl (80.0-96.0); MONO # 0.5 10^3/uL (0.0-0.8); MONO % 9.7 % (2.0-8.0); NEUTROPHILS # 2.7 10^3/uL (1.5-8.5); NEUTROPHILS % 55.1 % (36.0-66.0); PLATELET COUNT, AUTOMATED 240 10^3/uL (150-450); RED BLOOD COUNT 4.35 10^6/uL (4.00-5.40)
[2024-09-12 18:56] LABS: ALBUMIN 3.4 G/DL (3.2-5.2); ALKALINE PHOSPHATASE 75 U/L (35-104); ALT/SGPT 19 U/L (7.0-40); AST/SGOT 22 U/L (<34); BILIRUBIN,TOTAL 0.4 MG/DL (0.3-1.2); BLOOD UREA NITROGEN 17 MG/DL (9-23); CALCIUM LEVEL 9.3 MG/DL (8.5-10.1); CARBON DIOXIDE LEVEL 28 MMOL/L (20-31); CHLORIDE LEVEL 108 MMOL/L (98-107); CHOLESTEROL LEVEL 184 MG/DL (<200); CHOLESTEROL RISK RATIO 2.81 (<5); CREATININE FOR GFR 0.81 MG/DL (0.55-1.30); FOLATE 8.9 NG/ML (>5.4); GLOMERULAR FILTRATION RATE > 60.0 (>51); GLUCOSE, FASTING 79 MG/DL (60-100); HDL CHOLESTEROL 65.4 MG/DL (>40); IRON (FE) 52 UG/DL (50-170); LDL CHOLESTEROL 107.2 MG/DL (<100); NON-HDL-C 118.6 MG/DL; POTASSIUM SERUM 4.7 MMOL/L (3.5-5.1); SODIUM LEVEL 143 MMOL/L (136-145); TOTAL IRON BINDING CAPACITY 306 UG/DL (250-425); TOTAL PROTEIN 6.6 G/DL (5.7-8.2); TRIGLYCERIDES LEVEL 57 MG/DL (<150)
[2024-09-12 18:57] LABS: FERRITIN 5.8 NG/ML (7.3-270.7); VITAMIN B12 LEVEL 495 PG/ML (211-911)
== END ==
LOC: M SFHCCAPE 08:04
PROVIDERS: ATTEND Physician Assistant Medical
DX: E53.8 Deficiency of other specified B group vitamins (principal); F32.9 Major depressive disorder, single episode, unspecified; R73.01 Impaired fasting glucose; Z98.84 Bariatric surgery status; Z13.220 Encounter for screening for lipoid disorders

== ENCOUNTER → 2024-10-17 | Outpatient (CLI) | payer MEDICAID, OTHER | LOC: M WHC 15:21 | PROVIDERS: ATTEND Physician Assistant Medical | DX: Z12.31 Encounter for screening mammogram for malignant neoplasm of breast (principal) ==

== ENCOUNTER → 2025-01-27 | Outpatient (CLI) | payer OTHER, MEDICAID | LOC: M WUC 12:18 | PROVIDERS: ATTEND Physician Assistant Medical | DX: G89.29 Other chronic pain (principal); M17.12 Unilateral primary osteoarthritis, left knee; M25.774 Osteophyte, right foot ==